=== PATIENT | male | born 1955 | race Caucasian/White ===

== ENCOUNTER → 2016-12-12 | Outpatient (CLI) | payer BC ==
[2016-12-12 14:10] LABS: Basophils # (A) 0.1 k/uL (0-0.2); Basophils % (A) 1 %; CH 32.6; CHCM 34.3; Eosinophils # (A) 0.1 k/uL (0-0.7); Eosinophils % (A) 1 %; HCT 43.9 % (39.0-53.0); HDW 2.31; HGB 15.4 gm/dL (13.0-17.5); Luc # (Auto) 0.26; Luc % (Auto) 2; Lymphocytes # (A) 3.2 k/uL (1.0-4.8); Lymphocytes % (A) 29 %; MCH 33.6 pg (25.0-35.0); MCHC 35.2 g/dL (31.0-37.0); MCV 95.5 fL (80.0-100.0); Mean Platelet Volume 7.1; Monocytes # (A) 0.7 k/uL (0-1.0); Monocytes % (A) 7 %; Neutrophils # (A) 6.6 k/uL (1.3-7.7); Neutrophils % (A) 60 %; RDW 12.9 % (11.5-15.5); WBC 10.9 k/uL (3.8-10.6); WBC (Perox) 10.61
[2016-12-12 14:24] LABS: ALT 37 U/L (21-72); AST 24 U/L (17-59); Alkaline Phosphatase 75 U/L (38-126); Anion Gap 9 mmol/L; Blood Urea Nitrogen 12 mg/dL (9-20); Calcium 9.6 mg/dL (8.4-10.2); Carbon Dioxide 27 mmol/L (22-30); Chloride 104 mmol/L (98-107); Cholesterol 100 mg/dL (<200); Glucose 94 mg/dL (74-99); HDL Cholesterol 43 mg/dL (40-60); Non-African American GFR(MDRD) >60 (>60 ml/min/1.73 sqM); Potassium 4.1 mmol/L (3.5-5.1); Sodium 140 mmol/L (137-145); Total Bilirubin 0.9 mg/dL (0.2-1.3); Total Protein 6.4 g/dL (6.3-8.2); Triglycerides 70 mg/dL (<150)
== END | disposition home or self-care (01) ==
LOC: LABWHC1 13:34
PROVIDERS: ATTEND Internal Medicine
DX: E78.2 Mixed hyperlipidemia (principal); I10 Essential (primary) hypertension; Z12.5 Encounter for screening for malignant neoplasm of prostate
CPT/HCPCS: 80061; 80053; 85025; 36415; G0103

== ENCOUNTER 2020-10-26 19:09 | Emergency (ER) | payer OTHER, BC ==
[2020-10-26 19:37] VITALS: BP 182/98; PULSE 68; RESP 18; TEMP 98.2
--- NOTE | 2020-10-26 21:14 | ED ---
General Adult HPI - General Chief complaint: Extremity Problem,Nontraumatic Stated complaint: leg injury Time Seen by Provider: 10/26/20 21:01 Source: patient, RN notes reviewed Mode of arrival: wheelchair Limitations: no limitations - History of Present Illness Initial comments: Patient is a pleasant 64-year-old male presenting to the emergency Department with left leg injury. Incident occurred around 11:30 today. Patient was moving farm equipment. Following this she was walking and 70 felt a pop in his left calf. Patient has had discomfort and difficulty walking since that time. Patient states he cannot really bear weight on the left leg. No discomfort while at rest or lying down in bed. No history of similar symptoms previously. No other areas of injury or concern. - Related Data Home Medications Medication Instructions Recorded Confirmed Benazepril [Lotensin] 5 mg PO DAILY 05/02/14 05/02/14 Previous Rx's Medication Instructions Recorded Aspirin EC [Ecotrin] 325 mg PO DAILY #30 tablet.dr 05/04/14 Atorvastatin [Lipitor] 80 mg PO HS #30 tab 05/04/14 Clopidogrel [Plavix] 75 mg PO DAILY #30 tab 05/04/14 Levofloxacin [Levaquin] 750 mg PO Q24H #5 tab 05/04/14 Metoprolol Succinate (ER) [Toprol 25 mg PO DAILY #30 tab.er.24h 05/04/14 XL] Nitroglycerin Sl Tabs [Nitrostat] 0.4 mg SUBLINGUAL Q5M PRN #25 tab 05/04/14 Allergies Allergy/AdvReac Type Severity Reaction Status Date / Time No Known Allergies Allergy Verified 10/26/20 19:34 Review of Systems ROS Statement: Those systems with pertinent positive or pertinent negative responses have been documented in the HPI. ROS Other: All systems not noted in ROS Statement are negative. Constitutional: Denies: fever Eyes: Denies: eye pain ENT: Denies: ear pain Respiratory: Denies: cough Cardiovascular: Denies: chest pain Endocrine: Denies: fatigue Gastrointestinal: Denies: abdominal pain Genitourinary: Denies: dysuria Musculoskeletal: Reports: as per HPI. Denies: back pain Skin: Denies: rash Neurological: Denies: headache Past Medical History Past Medical History: COPD, Hypertension Additional Past Medical History / Comment(s): MURMUR CHILD History of Any Multi-Drug Resistant Organisms: None Reported Past Surgical History: Appendectomy Past Anesthesia/Blood Transfusion Reactions: No Reported Reaction Past Psychological History: No Psychological Hx Reported Smoking Status: Current every day smoker Past Alcohol Use History: Occasional Past Drug Use History: None Reported, Marijuana - Past Family History Father Family Medical History: Diabetes Mellitus Additional Family Medical History / Comment(s): AT AGE 66- STROKE Mother Family Medical History: COPD, CVA/TIA Additional Family Medical History / Comment(s): EMPHYSEMA General Exam Limitations: no limitations General appearance: alert, in no apparent distress Head exam: Present: atraumatic Eye exam: Present: normal appearance Neck exam: Present: normal inspection Respiratory exam: Present: normal lung sounds bilaterally Cardiovascular Exam: Present: regular rate, normal rhythm Expanded Peripheral pulses: 2+: Posterior Tibialis (L), Dorsalis Pedis (L) GI/Abdominal exam: Present: soft. Absent: tenderness Extremities exam: Present: calf tenderness (Swelling and left calf tenderness.), other (Achilles tendon is intact. Difficulty and Discomfort with dorsiflexion. Distally the foot is sensation intact.) Neurological exam: Present: alert Psychiatric exam: Present: normal affect, normal mood Skin exam: Present: normal color Course Vital Signs 10/26/20 19:34 Temperature 98.2 F Pulse Rate 68 Respiratory 18 Rate Blood Pressure 182/98 O2 Sat by Pulse 97 Oximetry Procedures - Orthopedic Splinting/Casting Injury #1 Side: left Lower Extremity Injury Location: short leg Lower Extremity Immobilizer: posterior splint Medical Decision Making - Medical Decision Making Patient reevaluated and updated. Splint placed. Patient is made aware of high concern for muscle tear. Disposition Clinical Impression: Injury of calf Disposition: HOME SELF-CARE Condition: Stable Instructions (If sedation given, give patient instructions): Tendon Rupture (ED) Additional Instructions: No weightbearing on left leg. Ice to affected area. Use crutches. Please follow-up with [email or web address] tomorrow. You will need to see orthopedics within the next day for further evaluation. There is high concern for torn muscles in the calf. Is patient prescribed a controlled substance at d/c from ED?: No Referrals: Dennis Titus DO [Doctor of Osteopathic Medicine] - 1-2 days Time of Disposition: 22:14
--- NOTE | 2020-10-26 21:54 | US ---
EXAMINATION TYPE: US venous doppler duplex LE LT DATE OF EXAM: 10/26/2020 9:39 PM COMPARISON: NONE CLINICAL HISTORY: pain. Patient felt a pop while at work in his calf and has limited mobility and swe lling to calf, no h/o dvt SIDE PERFORMED: Left TECHNIQUE: The lower extremity deep venous system is examined utilizing real time linear array sonog elver with graded compression, doppler sonography and color-flow sonography. VESSELS IMAGED: Common Femoral Vein Deep Femoral Vein Greater Saphenous Vein * Femoral Vein Popliteal Vein Small Saphenous Vein * Proximal Calf Veins (* superficial vessels) Left Leg: Negative for DVTat mid calf, area of swelling, there is a complex 11.0 x 2.6cm focal abn ormality that may relate to muscle injury IMPRESSION: no DVT. See above
--- NOTE | 2020-10-26 21:57 | XR ---
EXAMINATION TYPE: XR tibia fibula LT DATE OF EXAM: 10/26/2020 CLINICAL HISTORY: pain TECHNIQUE: AP and lateral images of the left tibia and fibula are obtained. COMPARISON: None. FINDINGS: There is no acute fracture/dislocation evident. Well-corticated ossific density distal to the lateral projection anteriorly. Mass effect remote injury. Bony exostosis identified proximal tibi a medially. The joint spaces appear within normal limits. The overlying soft tissue appears unremar kable. IMPRESSION: There is no acute fracture or dislocation seen. ICD 10 NO FRACTURE, INITIAL EVALUATION
[2020-10-26] MEDS ORDERED: ACET/COD 300 MG/30 MG STARTER PACK 6 TAB BTL PO STA (22:14)
== END 2020-10-26 22:50 | disposition home or self-care (01) ==
LOC: EC 19:09
DX: S89.92XA Unspecified injury of left lower leg, initial encounter (principal); J44.9 Chronic obstructive pulmonary disease, unspecified; I10 Essential (primary) hypertension; F17.200 Nicotine dependence, unspecified, uncomplicated; Z79.82 Long term (current) use of aspirin; Z79.02 Long term (current) use of antithrombotics/antiplatelets; Z79.899 Other long term (current) drug therapy; X58.XXXA Exposure to other specified factors, initial encounter; Y93.01 Activity, walking, marching and hiking
CPT/HCPCS: 29515; 99284